=== PATIENT | male | born 1995 | race Native Hawaiian/Other Pacific Islander ===

== ENCOUNTER 2017-11-03 12:31 | Emergency (ER) | payer SELFPAY ==
[2017-11-03 12:41] VITALS: TEMP 97
[2017-11-03] MEDS ORDERED: Tdap Vaccine 0.5 ml Vial (10-64 yrs) IM ONE ×2 (12:55→13:14)
[2017-11-03] MEDS ORDERED: Lidocaine 1% Inj (20ml) INFIL ONE (12:56)
[2017-11-03] MEDS ORDERED: Lidocaine PF 2% (5 ml) Inj (For Cardiac Arrhy) ONE (13:13)
--- NOTE | 2017-11-03 13:20 | ED PDOC ---
Upper Extremity Pain/Injury Time Seen by Provider: 11/03/17 12:57 Chief Complaint (Nursing): Abnormal Skin Integrity Chief Complaint (Provider): Left Finger Laceration History Per: Patient History/Exam Limitations: no limitations Onset/Duration Of Symptoms: Hrs Current Symptoms Are (Timing): Still Present Quality: "Pain" Additional Complaint(s): 21 year old right hand dominant male presents to the ED for an evaluation of left hand injury. Patient reports he accidentally cut himself with a knife and sustained a laceration to the left index finger. Reports he received his last tetanus shot 2 years ago. PMD: No Family Provider Past Medical History Reviewed: Historical Data, Nursing Documentation, Vital Signs Vital Signs: Last Vital Signs Temp 97 F L 11/03/17 12:37 Pulse 89 11/03/17 12:37 Resp 19 11/03/17 12:37 BP 156/99 H 11/03/17 12:37 Pulse Ox 98 11/03/17 12:37 - Medical History PMH: No Chronic Diseases - Family History Family History: States: Unknown Family Hx - Allergies Allergies/Adverse Reactions: Allergies Allergy/AdvReac Type Severity Reaction Status Date / Time No Known Allergies Allergy Verified 11/03/17 12:37 Review of Systems ROS Statement: Except As Marked, All Systems Reviewed And Found Negative Musculoskeletal: Positive for: Other (left finger laceration) Physical Exam - Reviewed Nursing Documentation Reviewed: Yes Vital Signs Reviewed: Yes - Physical Exam Appears: Positive for: Non-toxic, No Acute Distress Head Exam: Positive for: ATRAUMATIC, NORMAL INSPECTION, NORMOCEPHALIC Skin: Positive for: Normal Color, Warm, Dry Eye Exam: Positive for: Normal appearance Extremity: Positive for: Other (2 cm v-shaped laceration on medial aspect of left index finger) Neurologic/Psych: Positive for: Alert, Oriented (x3). Negative for: Motor/ Sensory Deficits - ECG O2 Sat by Pulse Oximetry: 98 (RA) Pulse Ox Interpretation: Normal Medical Decision Making Medical Decision Making: Time: 1255 Initial Impression: finger laceration Initial Plan: --Adacel 10-64 yrs 0.5ml IM --Lidocaine 1% (20ml) 1ml --Reevaluation PROCEDURE: LACERATION REPAIR Performed by Kristine Ruggiero PA-C Location: left index finger Length: 2 cm Description: clean wound edges,no foreign bodies Distal CMS: Normal. No deficits. Neurovascularly intact. Anesthesia: 3ml of Lidocaine 1% Preparation: The wound was cleaned with NS and [place]. The area was prepped and draped in the usual sterile fashion. Exploration: The wound was explored and no foreign bodies were found. Procedure: The wound was closed with 4:0 nylon interrupted. There was good approximation. In total, 3 sutures were used. Post-Procedure: Good closure and hemostasis. The patient tolerated the procedure well and there were no complications. CSM remains intact. Post procedure dressing applied. Upon provider evaluation patient is medically stable, and requires no further treatment in the ED at this time. Patient will be discharged. Counseling was provided and all questions were answered regarding diagnosis and need for follow up with ED/Urgent Care/PMD. There is agreement to discharge plan. Return if symptoms persist or worsen. Scribe Attestation: Documented by Sallie Capellan, acting as a scribe for Kristine Ruggiero PA-C. Provider Scribe Attestation: All medical record entries made by the Scribe were at my direction and personally dictated by me. I have reviewed the chart and agree that the record accurately reflects my personal performance of the history, physical exam, medical decision making, and the department course for this patient. I have also personally directed, reviewed, and agree with the discharge instructions and disposition. Procedures - Time-Out Type of Procedure: Digital Block Site of Procedure: left index finger Correct Patient: Yes Correct Procedure: Yes Correct Site Marked: Yes Medication Recon: Yes - Laceration/Wound Repair Left Medial Finger Wound Length (cm): 2 Wound Explored: no foreign body removed Anesthesia: 1% Lidocaine Volume Anesthetic (ccs): 3 Wound Repaired With: Sutures Suture Size/Type: 4:0, nylon Number of Sutures: 3 Layer Closure?: Yes Wound Complexity: Simple Sterile Dressing Applied?: Yes Disposition - Clinical Impression Clinical Impression: Finger laceration - Patient ED Disposition Is Patient to be Admitted: No - Disposition Disposition: Routine/Home Disposition Time: 13:42 Condition: FAIR Additional Instructions: FOLLOW UP WITH ED/URGENT CARE/PMD IN 7 TO 10 DAYS FOR REMOVAL OF SUTURES Instructions: Laceration Repair With Stitches (DC) Forms: [facility] (Welsh)
[2017-11-03 13:59] VITALS: BP 138/82; PULSE 77; RESP 17; O2SAT 100
== END 2017-11-03 13:59 | disposition home or self-care (01) ==
LOC: H.ER 12:31
DX: S61.211A Laceration without foreign body of left index finger without damage to nail, initial encounter (principal); W26.0XXA Contact with knife, initial encounter; Y92.89 Other specified places as the place of occurrence of the external cause